=== PATIENT | female | born 1940 | race Caucasian/White ===

== ENCOUNTER 2019-08-02 11:09 | Inpatient (IN) ==
[2019-08-02] MEDS ORDERED: Naloxone 0.4 MG/ML INJ IVP PRN (14:44)
[2019-08-02] MEDS ORDERED: Ondansetron 4 MG/2 ML VIAL IVP PRN (14:54)
[2019-08-02] MEDS ORDERED: Ipratropium/Albuterol Neb 3 ML IH PRN (15:04)
[2019-08-02] MEDS: Piperacillin/Tazobactam 3.375 GM in 0.9 % Sodium Chloride Mini Bag 100 ML IVPB SCH (15:57)
[2019-08-02] MEDS: *HR* Enoxaparin 60 MG/0.6 ML SYRINGE SQ SCH (16:36)
[2019-08-03] MEDS: Piperacillin/Tazobactam 3.375 GM in 0.9 % Sodium Chloride Mini Bag 100 ML IVPB SCH ×3 (00:18→15:26)
[2019-08-03 01:22] LABS: Hematocrit 32.3 % (35.3-44.9); Hemoglobin 10.8 g/dL (11.5-15.4); Mean Corpuscular HGB Conc 33.4 g/dL (31.6-35.5); Mean Corpuscular Hemoglobin 30.7 pg (28.0-33.3); Mean Corpuscular Volume 91.8 fL (83.0-100.0); Mean Platelet Volume 10.8 fL (9.4-12.4); Platelet Count 102 K/mcL (140-400); Red Blood Count 3.52 M/mcL (3.82-4.97); Red Cell Distribution Width 12.5 % (11.5-14.5); White Blood Count 8.7 K/mcL (4.3-11.1)
[2019-08-03 01:43] LABS: Alanine Aminotransferase 12 Units/L (7-52); Albumin/Globulin Ratio 1.3 (1.1-2.2); Alkaline Phosphatase 76 Units/L (34-104); Aspartate Amino Transferase 17 Units/L (13-39); BUN/Creatinine Ratio 16 (6-26); Blood Urea Nitrogen 9 mg/dL (8-23); Calcium 8.1 mg/dL (8.6-10.3); Carbon Dioxide 28 mEq/L (23-29); Chloride 102 mEq/L (98-107); Globulin 2.3 g/dL (2.4-3.5); Glucose 111 mg/dL (70-105); Osmolality,Calculated 279 (280-300); Potassium 3.5 mEq/L (3.5-5.1); Sodium 135 mEq/L (136-145); Total Protein 5.3 g/dL (6.4-8.9); eGFR For African Americans > 60 (> 60); eGFR For Non-African Americans > 60 (> 60)
[2019-08-03 01:44] LABS: Magnesium 1.6 mg/dL (1.6-2.6); Phosphorous 1.5 mg/dL (2.7-4.5)
[2019-08-03] MEDS: *HR* Enoxaparin 60 MG/0.6 ML SYRINGE SQ SCH (05:05)
[2019-08-03 08:45] LABS: Troponin I 0.03 ng/mL (< 0.04)
[2019-08-03] MEDS ORDERED: lisinopriL 10 MG TABLET PO SCH (09:00)
[2019-08-03] MEDS ORDERED: polyethylene glycoL 3350 17 GM POWD.PACK PO SCH (09:00)
[2019-08-03] MEDS: amLODIPine 5 MG TABLET PO SCH (10:34)
[2019-08-03] MEDS: PARoxetine 20 MG TABLET PO SCH (10:34)
[2019-08-03 15:01] LABS: VBG Ionized Calcium 1.17 mmol/L (1.15-1.35)
[2019-08-03] MEDS ORDERED: *HR* Rivaroxaban 10 MG TABLET PO SCH (17:00)
[2019-08-04] MEDS: Piperacillin/Tazobactam 3.375 GM in 0.9 % Sodium Chloride Mini Bag 100 ML IVPB SCH ×2 (01:09→10:18)
[2019-08-04 08:54] LABS: Basophils % 0.3 %; Eosinophils # 0.4 K/mcL (0.0-0.6); Eosinophils % 5.8 %; Hematocrit 34.5 % (35.3-44.9); Hemoglobin 11.7 g/dL (11.5-15.4); Immature Granulocytes % 0.8 % (0-4); Lymphocytes # 0.9 K/mcL (0.6-4.6); Lymphocytes % 14.8 %; Mean Corpuscular HGB Conc 33.9 g/dL (31.6-35.5); Mean Corpuscular Hemoglobin 30.9 pg (28.0-33.3); Mean Platelet Volume 10.7 fL (9.4-12.4); Monocytes # 0.5 K/mcL (0.0-1.3); Monocytes % 7.9 %; Neutrophils # 4.4 K/mcL (1.6-8.9); Platelet Count 160 K/mcL (140-400); Red Blood Count 3.79 M/mcL (3.82-4.97); Red Cell Distribution Width 12.3 % (11.5-14.5); Segmented Neutrophils % 70.4 %; White Blood Count 6.2 K/mcL (4.3-11.1)
[2019-08-04 09:12] LABS: BUN/Creatinine Ratio 17 (6-26); Blood Urea Nitrogen 11 mg/dL (8-23); Calcium 8.8 mg/dL (8.6-10.3); Carbon Dioxide 28 mEq/L (23-29); Chloride 100 mEq/L (98-107); Glucose 113 mg/dL (70-105); Osmolality,Calculated 282 (280-300); Phosphorous 3.8 mg/dL (2.7-4.5); Potassium 3.4 mEq/L (3.5-5.1); Sodium 136 mEq/L (136-145); eGFR For African Americans > 60 (> 60); eGFR For Non-African Americans > 60 (> 60)
[2019-08-04] MEDS: PARoxetine 20 MG TABLET PO SCH (10:19)
[2019-08-04] MEDS: amLODIPine 5 MG TABLET PO SCH (10:19)
[2019-08-04 10:39] VITALS: BP 155/68
[2019-08-06 07:49] LABS: Immunoglobulin G Subclass 1 419 mg/dL (240-1118); Immunoglobulin G Subclass 2 53 mg/dL (124-549); Immunoglobulin G Subclass 3 18 mg/dL (21-134); Immunoglobulin G Subclass 4 12 mg/dL (1-123)
[2019-08-06 12:32] LABS: ANA IgG by ELISA NONE DETECTED (None Detected)
== END 2019-08-04 16:24 | disposition home or self-care (01) ==
LOC: 3ANU → SUATTDRO 17:06
PROVIDERS: ADMIT Internal Medicine; ATTEND Student in an Organized Health Care Education/Training Program